=== PATIENT | male | born 1985 | race African-American/Black ===

== ENCOUNTER 2020-08-05 13:47 | Emergency (ER) | payer OTHER ==
[2020-08-05] MEDS ORDERED: SODIUM CHLORIDE 0.9% 1,000 ML IV STA (14:13)
[2020-08-05] MEDS ORDERED: ONDANSETRON 4 MG/2 ML VIAL IVP STA (14:13)
[2020-08-05 14:35] LABS: Basophils # (A) 0.1 k/uL (0-0.2); Basophils % (A) 1 %; Eosinophils % (A) 1 %; HCT 53.5 % (39.0-53.0); HGB 17.5 gm/dL (13.0-17.5); Lymphocytes # (A) 2.4 k/uL (1.0-4.8); Lymphocytes % (A) 36 %; MCH 29.5 pg (25.0-35.0); MCHC 32.7 g/dL (31.0-37.0); MCV 90.2 fL (80.0-100.0); Mean Platelet Volume 7.6; Monocytes # (A) 0.6 k/uL (0-1.0); Monocytes % (A) 9 %; Neutrophils # (A) 3.3 k/uL (1.3-7.7); Neutrophils % (A) 49 %; Platelet Count 367 k/uL (150-450); RBC 5.93 m/uL (4.30-5.90); RDW 12.7 % (11.5-15.5); WBC 6.7 k/uL (3.8-10.6)
[2020-08-05 14:36] LABS: Appearance,Urine Clear (Clear); Bilirubin,Urine Negative (Negative); Blood,Urine Negative (Negative); Color,Urine Yellow; Glucose,Urine (UA) Negative (Negative); Ketones,Urine 2+ (Negative); Leukocyte Esterase,Urine Negative (Negative); Nitrite,Urine Negative (Negative); PH, Urine 5.5 (5.0-8.0); Protein,Urine Trace (Negative); Specific Gravity,Urine 1.022 (1.001-1.035); Urobilinogen,Urine <2.0 mg/dL (<2.0)
--- NOTE | 2020-08-05 14:44 | ED ---
Nausea/Vomiting/Diarrhea HPI - General Chief complaint: Nausea/Vomiting/Diarrhea Stated complaint: Nausea, Diarrhea Time Seen by Provider: 08/05/20 13:58 Source: patient Mode of arrival: ambulatory Limitations: no limitations - History of Present Illness Initial comments: Patient is a 35-year-old male presenting to emergency Department with complaints of fatigue, nausea, vomiting, diarrhea and abdominal cramping has been increasing over the past 3 days. He denies any fever or chills, chest pain or cough. He states it started with some abdominal cramping and diarrhea, he had vomiting yesterday, but none today. He is complaining of fatigue, achiness. He denies any urinary complaints. He does not take any medications. He denies any headaches, dizziness, blurry vision. He has no further complaints at this time. Upon arrival to the ER, his vital signs are stable. - Related Data Home Medications Medication Instructions Recorded Confirmed Acetaminophen Tab [Tylenol Tab] 1,000 mg PO Q6HR PRN 08/05/20 08/05/20 Bismuth Subsalicylate 524 mg PO Q2H PRN MDD 4080 mg/day 08/05/20 08/05/20 [Pepto-Bismol] Allergies Allergy/AdvReac Type Severity Reaction Status Date / Time No Known Allergies Allergy Verified 08/05/20 14:39 Review of Systems ROS Statement: Those systems with pertinent positive or pertinent negative responses have been documented in the HPI. ROS Other: All systems not noted in ROS Statement are negative. Past Medical History Past Medical History: No Reported History History of Any Multi-Drug Resistant Organisms: None Reported Past Surgical History: No Surgical Hx Reported Past Psychological History: No Psychological Hx Reported Smoking Status: Current every day smoker Past Alcohol Use History: None Reported Past Drug Use History: Marijuana General Exam - General Exam Comments Initial Comments: GENERAL: Patient is well-developed and well-nourished. Patient is nontoxic and in no acute distress. HEAD: Atraumatic, normocephalic. EYES: Pupils equal round and reactive to light, extraocular movements intact, sclera anicteric, conjunctiva are normal. Eyelids were unremarkable. ENT: TMs normal, nares patent, oropharynx clear without exudates. Moist mucous membranes. NECK: Normal range of motion, supple without lymphadenopathy or JVD. LUNGS: Unlabored respirations. Breath sounds clear to auscultation bilaterally and equal. No wheezes rales or rhonchi. HEART: Regular rate and rhythm without murmurs, rubs or gallops. ABDOMEN: Generalized abdominal discomfort, no specific area pain. Soft, normoactive bowel sounds. No guarding, no rebound. No masses appreciated. : Deferred MUSCULOSKELETAL: Normal extremities with adequate strength and normal range of motion, no pitting or edema. No clubbing or cyanosis. NEUROLOGICAL: Patient is alert and oriented x 3. Motor and sensory are also intact. Cranial nerves II through XII grossly intact. Symmetrical smile. Normal speech, normal gait. PSYCH: Normal mood, normal affect. SKIN: Warm, Dry, normal turgor, no rashes or lesions noted. Limitations: no limitations Course Vital Signs 08/05/20 08/05/20 13:51 16:06 Temperature 97.9 F 98.1 F Pulse Rate 70 69 Respiratory 18 19 Rate Blood Pressure 117/70 120/76 O2 Sat by Pulse 97 99 Oximetry Medical Decision Making - Medical Decision Making Patient 35-year-old male here for nausea, vomiting, abdominal cramping and generalized fatigue for the last 3 days. Vital signs are stable. Labs show normal white count, normal hemoglobin, liver enzymes are very slightly elevated at 77, 138. Lipase is normal. Urine shows 2+ ketones otherwise normal. Patient was given fluids and Zofran, reports mild improvement in symptoms. I discussed with patient that his symptoms could be related to dehydration, viral illness. I did recommend getting test for Covid, this is pending. He can continue increase his fluid intake. I did give him PCP referral is to follow- up. He is in agreement with this plan of care. He is stable for discharge. Return parameters were discussed patient he verbalizes understanding. Case discussed with Dr. crane. - Lab Data Result diagrams: 08/05/20 14:20 08/05/20 14:20 Lab Results 08/05/20 08/05/20 08/05/20 Range/Units 14:20 14:20 14:20 WBC 6.7 (3.8-10.6) k/uL RBC 5.93 H (4.30-5.90) m/uL Hgb 17.5 (13.0-17.5) gm/dL Hct 53.5 H (39.0-53.0) % MCV 90.2 (80.0-100.0) fL MCH 29.5 (25.0-35.0) pg MCHC 32.7 (31.0-37.0) g/dL RDW 12.7 (11.5-15.5) % Plt Count 367 (150-450) k/uL Neutrophils % 49 % Lymphocytes % 36 % Monocytes % 9 % Eosinophils % 1 % Basophils % 1 % Neutrophils # 3.3 (1.3-7.7) k/uL Lymphocytes # 2.4 (1.0-4.8) k/uL Monocytes # 0.6 (0-1.0) k/uL Eosinophils # 0.0 (0-0.7) k/uL Basophils # 0.1 (0-0.2) k/uL Sodium 140 (137-145) mmol/L Potassium 4.6 (3.5-5.1) mmol/L Chloride 101 (98-107) mmol/L Carbon Dioxide 25 (22-30) mmol/L Anion Gap 14 mmol/L BUN 15 (9-20) mg/dL Creatinine 0.81 (0.66-1.25) mg/dL Est GFR (CKD-EPI)AfAm >90 (>60 ml/min/1.73 sqM) Est GFR (CKD-EPI)NonAf >90 (>60 ml/min/1.73 sqM) Glucose 96 (74-99) mg/dL Calcium 11.3 H (8.4-10.2) mg/dL Total Bilirubin 0.7 (0.2-1.3) mg/dL AST 77 H (17-59) U/L ALT 138 H (4-49) U/L Alkaline Phosphatase 96 (38-126) U/L Total Protein 8.0 (6.3-8.2) g/dL Albumin 4.7 (3.5-5.0) g/dL Lipase 279 (23-300) U/L Urine Color Yellow Urine Appearance Clear (Clear) Urine pH 5.5 (5.0-8.0) Ur Specific [place] 1.022 (1.001-1.035) Urine Protein Trace H (Negative) Urine Glucose (UA) Negative (Negative) Urine Ketones 2+ H (Negative) Urine Blood Negative (Negative) Urine Nitrite Negative (Negative) Urine Bilirubin Negative (Negative) Urine Urobilinogen <2.0 (<2.0) mg/dL Ur Leukocyte Esterase Negative (Negative) Disposition Clinical Impression: Nausea vomiting and diarrhea Disposition: HOME SELF-CARE Condition: Stable Instructions (If sedation given, give patient instructions): Acute Nausea and Vomiting (ED) Additional Instructions: Please return to the Emergency Department if symptoms worsen or any other concerns. Lab work today is normal, mild dehydration. COVID test is pending. Continue to increase fluid intake. I recommended following up with her PCP did have labs retested. Is patient prescribed a controlled substance at d/c from ED?: No Referrals: None,Stated [Primary Care Provider] - 1-2 days Irene Darby MD [STAFF PHYSICIAN] - 1-2 days Hugh Arthur [STAFF PHYSICIAN] - 1-2 days
[2020-08-05 14:46] LABS: ALT 138 U/L (4-49); AST 77 U/L (17-59); African American GFR (CKD) >90 (>60 ml/min/1.73 sqM); Albumin 4.7 g/dL (3.5-5.0); Alkaline Phosphatase 96 U/L (38-126); Anion Gap 14 mmol/L; Blood Urea Nitrogen 15 mg/dL (9-20); Calcium 11.3 mg/dL (8.4-10.2); Carbon Dioxide 25 mmol/L (22-30); Chloride 101 mmol/L (98-107); Glucose 96 mg/dL (74-99); Non-African American GFR(CKD) >90 (>60 ml/min/1.73 sqM); Potassium 4.6 mmol/L (3.5-5.1); Sodium 140 mmol/L (137-145); Total Bilirubin 0.7 mg/dL (0.2-1.3)
[2020-08-05 16:08] VITALS: BP 120/76; PULSE 69; RESP 19; TEMP 98.1
== END 2020-08-05 16:08 | disposition home or self-care (01) ==
LOC: EC 13:47
DX: R11.2 Nausea with vomiting, unspecified (principal); R19.7 Diarrhea, unspecified; R10.9 Unspecified abdominal pain; F17.200 Nicotine dependence, unspecified, uncomplicated; Z20.828 Contact with and (suspected) exposure to other viral communicable diseases
CPT/HCPCS: 36415; 80053; 83690; 85025; 81003; 99284; 96374; 96361 ×2; U0003; J2405

== ENCOUNTER 2020-10-29 12:19 | Observation (INO) | payer BC, OTHER ==
[2020-10-29] MEDS ORDERED: SODIUM CHLORIDE 0.9% 500 ML 500 ML IV STA (13:10)
--- NOTE | 2020-10-29 13:20 | ED ---
General Adult HPI - General Chief complaint: Recheck/Abnormal Lab/Rx Stated complaint: palpitations, fatigue Time Seen by Provider: 10/29/20 12:33 Source: patient Mode of arrival: wheelchair Limitations: no limitations - History of Present Illness Initial comments: 35-year-old male without any significant past medical history presents to the emergency room for a chief complaint of shortness of breath. Patient states he is walking up the stairs today and could not catch his breath. He felt like his heart was racing. That he has not felt well for several months. He has had nausea vomiting starting in June or July that lasted for about a month and then resolved. Patient states he has not had much of an appetite but is eating a little more since that time. However he has lost 40 pounds over the past several months. - Related Data Home Medications Medication Instructions Recorded Confirmed No Known Home Medications 10/29/20 10/29/20 Allergies Allergy/AdvReac Type Severity Reaction Status Date / Time No Known Allergies Allergy Verified 10/29/20 12:57 Review of Systems ROS Statement: Those systems with pertinent positive or pertinent negative responses have been documented in the HPI. ROS Other: All systems not noted in ROS Statement are negative. Past Medical History Past Medical History: No Reported History History of Any Multi-Drug Resistant Organisms: None Reported Past Surgical History: No Surgical Hx Reported Past Psychological History: Anxiety Smoking Status: Current every day smoker Past Alcohol Use History: None Reported Past Drug Use History: Marijuana General Exam Limitations: no limitations General appearance: alert Head exam: Present: atraumatic Eye exam: Present: normal appearance, PERRL, EOMI ENT exam: Absent: normal exam, mucous membranes moist Neck exam: Present: normal inspection, full ROM. Absent: tenderness Respiratory exam: Present: normal lung sounds bilaterally. Absent: respiratory distress Cardiovascular Exam: Present: normal rhythm, tachycardia GI/Abdominal exam: Present: soft, normal bowel sounds. Absent: distended, tenderness Neurological exam: Present: alert Course Vital Signs 10/29/20 10/29/20 10/29/20 12:27 13:46 14:00 Temperature 98.4 F Pulse Rate 124 H 116 H Pulse Rate [ 121 H Offset Press Operator Helper ] Respiratory 18 Rate Blood Pressure 122/74 136/78 O2 Sat by Pulse 100 99 Oximetry 10/29/20 10/29/20 10/29/20 14:30 15:00 15:30 Temperature Pulse Rate 134 H 118 H 115 H Pulse Rate [ Offset Press Operator Helper ] Respiratory 16 16 16 Rate Blood Pressure 128/70 129/72 129/81 O2 Sat by Pulse 98 100 100 Oximetry Medical Decision Making - Medical Decision Making Patient presents tachycardic with slight shortness of breath. Gurjit did have an episode of severe shortness of breath he could not meet at the stairs. No chest pain. EKG did show diffuse WI depression with slight ST elevation. Troponin negative. D-dimer normal. CBC is unremarkable. CMP shows mild hypercalcemia, chest x-ray shows no acute cardiopulmonary process. Echo is obtained, awaiting cardiology read. Dr. Hay discussed this case with cardiology, thinks EKG likely early repolarization. Patient will be admitted to Dr. Rojas with cardiac monitoring. - Lab Data Result diagrams: 10/29/20 13:14 10/29/20 13:14 Lab Results 10/29/20 10/29/20 10/29/20 Range/Units 13:14 13:14 13:14 WBC 6.9 (3.8-10.6) k/uL RBC 5.59 (4.30-5.90) m/uL Hgb 15.6 (13.0-17.5) gm/dL Hct 47.0 (39.0-53.0) % MCV 84.1 (80.0-100.0) fL MCH 27.9 (25.0-35.0) pg MCHC 33.2 (31.0-37.0) g/dL RDW 14.7 (11.5-15.5) % Plt Count 288 (150-450) k/uL MPV 7.8 Neutrophils % 54 % Lymphocytes % 31 % Monocytes % 10 % Eosinophils % 1 % Basophils % 1 % Neutrophils # 3.8 (1.3-7.7) k/uL Lymphocytes # 2.2 (1.0-4.8) k/uL Monocytes # 0.7 (0-1.0) k/uL Eosinophils # 0.1 (0-0.7) k/uL Basophils # 0.0 (0-0.2) k/uL PT 9.9 (9.0-12.0) sec INR 0.9 (<1.2) APTT 23.2 (22.0-30.0) sec D-Dimer 0.32 (<0.60) mg/L FEU Sodium 138 (137-145) mmol/L Potassium 5.1 (3.5-5.1) mmol/L Chloride 103 (98-107) mmol/L Carbon Dioxide 27 (22-30) mmol/L Anion Gap 8 mmol/L BUN 14 (9-20) mg/dL Creatinine 0.66 (0.66-1.25) mg/dL Est GFR (CKD-EPI)AfAm >90 (>60 ml/min/1.73 sqM) Est GFR (CKD-EPI)NonAf >90 (>60 ml/min/1.73 sqM) Glucose 72 L (74-99) mg/dL Calcium 11.6 H (8.4-10.2) mg/dL Magnesium 1.7 (1.6-2.3) mg/dL Total Bilirubin 0.8 (0.2-1.3) mg/dL AST 45 (17-59) U/L ALT 57 H (4-49) U/L Alkaline Phosphatase 169 H (38-126) U/L Troponin I (0.000-0.034) ng/mL NT-Pro-B Natriuret Pep pg/mL Total Protein 7.5 (6.3-8.2) g/dL Albumin 4.4 (3.5-5.0) g/dL Urine Opiates Screen (NotDetected) Ur Oxycodone Screen (NotDetected) Urine Methadone Screen (NotDetected) Ur Propoxyphene Screen (NotDetected) Ur Barbiturates Screen (NotDetected) U Tricyclic Antidepress (NotDetected) Ur Phencyclidine Scrn (NotDetected) Ur Amphetamines Screen (NotDetected) U Methamphetamines Scrn (NotDetected) U Benzodiazepines Scrn (NotDetected) Urine Cocaine Screen (NotDetected) U Marijuana (THC) Screen (NotDetected) 10/29/20 10/29/20 10/29/20 Range/Units 13:14 13:14 14:56 WBC (3.8-10.6) k/uL RBC (4.30-5.90) m/uL Hgb (13.0-17.5) gm/dL Hct (39.0-53.0) % MCV (80.0-100.0) fL MCH (25.0-35.0) pg MCHC (31.0-37.0) g/dL RDW (11.5-15.5) % Plt Count (150-450) k/uL MPV Neutrophils % % Lymphocytes % % Monocytes % % Eosinophils % % Basophils % % Neutrophils # (1.3-7.7) k/uL Lymphocytes # (1.0-4.8) k/uL Monocytes # (0-1.0) k/uL Eosinophils # (0-0.7) k/uL Basophils # (0-0.2) k/uL PT (9.0-12.0) sec INR (<1.2) APTT (22.0-30.0) sec D-Dimer (<0.60) mg/L FEU Sodium (137-145) mmol/L Potassium (3.5-5.1) mmol/L Chloride (98-107) mmol/L Carbon Dioxide (22-30) mmol/L Anion Gap mmol/L BUN (9-20) mg/dL Creatinine (0.66-1.25) mg/dL Est GFR (CKD-EPI)AfAm (>60 ml/min/1.73 sqM) Est GFR (CKD-EPI)NonAf (>60 ml/min/1.73 sqM) Glucose (74-99) mg/dL Calcium (8.4-10.2) mg/dL Magnesium (1.6-2.3) mg/dL Total Bilirubin (0.2-1.3) mg/dL AST (17-59) U/L ALT (4-49) U/L Alkaline Phosphatase (38-126) U/L Troponin I <0.012 (0.000-0.034) ng/mL NT-Pro-B Natriuret Pep 62 pg/mL Total Protein (6.3-8.2) g/dL Albumin (3.5-5.0) g/dL Urine Opiates Screen Not Detected (NotDetected) Ur Oxycodone Screen Not Detected (NotDetected) Urine Methadone Screen Not Detected (NotDetected) Ur Propoxyphene Screen Not Detected (NotDetected) Ur Barbiturates Screen Not Detected (NotDetected) U Tricyclic Antidepress Not Detected (NotDetected) Ur Phencyclidine Scrn Not Detected (NotDetected) Ur Amphetamines Screen Not Detected (NotDetected) U Methamphetamines Scrn Not Detected (NotDetected) U Benzodiazepines Scrn Not Detected (NotDetected) Urine Cocaine Screen Not Detected (NotDetected) U Marijuana (THC) Screen Detected H (NotDetected) Disposition Clinical Impression: Tachycardia, Hypercalcemia, Shortness of breath, Acute electrocardiogram changes Disposition: ADMITTED IP TO THIS HOSP Is patient prescribed a controlled substance at d/c from ED?: No Referrals: Chente Rojas MD [Primary Care Provider] - 1-2 days Time of Disposition: 16:02
--- NOTE | 2020-10-29 13:41 | XR ---
EXAMINATION TYPE: XR chest 1V portable DATE OF EXAM: 10/29/2020 COMPARISON: Chest x-ray dated 12/31/2015 HISTORY: Chest pain TECHNIQUE: Single frontal view of the chest is obtained. FINDINGS: There is no focal air space opacity, pleural effusion, or pneumothorax seen. The cardiac silhouette size is within normal limits. There are overlying cardiac leads. There is mild spinal cu rvature. The osseous structures are intact. IMPRESSION: No acute process.
[2020-10-29 13:55] LABS: Basophils % (A) 1 %; Eosinophils # (A) 0.1 k/uL (0-0.7); Eosinophils % (A) 1 %; HGB 15.6 gm/dL (13.0-17.5); Lymphocytes # (A) 2.2 k/uL (1.0-4.8); Lymphocytes % (A) 31 %; MCH 27.9 pg (25.0-35.0); MCHC 33.2 g/dL (31.0-37.0); MCV 84.1 fL (80.0-100.0); Mean Platelet Volume 7.8; Monocytes # (A) 0.7 k/uL (0-1.0); Monocytes % (A) 10 %; Neutrophils # (A) 3.8 k/uL (1.3-7.7); Neutrophils % (A) 54 %; Platelet Count 288 k/uL (150-450); RBC 5.59 m/uL (4.30-5.90); RDW 14.7 % (11.5-15.5); WBC 6.9 k/uL (3.8-10.6)
[2020-10-29 14:05] LABS: ALT 57 U/L (4-49); AST 45 U/L (17-59); African American GFR (CKD) >90 (>60 ml/min/1.73 sqM); Albumin 4.4 g/dL (3.5-5.0); Alkaline Phosphatase 169 U/L (38-126); Anion Gap 8 mmol/L; Blood Urea Nitrogen 14 mg/dL (9-20); Calcium 11.6 mg/dL (8.4-10.2); Carbon Dioxide 27 mmol/L (22-30); Chloride 103 mmol/L (98-107); Glucose 72 mg/dL (74-99); Magnesium 1.7 mg/dL (1.6-2.3); Non-African American GFR(CKD) >90 (>60 ml/min/1.73 sqM); Potassium 5.1 mmol/L (3.5-5.1); Sodium 138 mmol/L (137-145); Total Bilirubin 0.8 mg/dL (0.2-1.3); Total Protein 7.5 g/dL (6.3-8.2)
[2020-10-29 14:13] LABS: D-Dimer 0.32 mg/L FEU (<0.60); INR 0.9 (<1.2); Partial Thromboplastin Time 23.2 sec (22.0-30.0); Prothrombin Time 9.9 sec (9.0-12.0)
[2020-10-29 15:20] LABS: Amphetamine Screen,Urine Not Detected (NotDetected); Barbiturate Screen,Urine Not Detected (NotDetected); Benzodiazepines Screen,Urine Not Detected (NotDetected); Cocaine Screen,Urine Not Detected (NotDetected); Methadone Screen, Urine Not Detected (NotDetected); Opiate Screen,Urine Not Detected (NotDetected); Oxycodone Screen, Urine Not Detected (NotDetected); Phencyclidine Screen,Urine Not Detected (NotDetected); Tricyclic Antidepressant,Urine Not Detected (NotDetected); Urn Cannabinoid Scrn Detected (NotDetected)
[2020-10-29] MEDS ORDERED: ONDANSETRON 4 MG/2 ML VIAL IVP PRN (15:52)
[2020-10-29] MEDS ORDERED: NALOXONE 0.4 MG/ML 1 ML VIAL IV PRN (15:52)
[2020-10-29] MEDS: SODIUM CHLORIDE 0.9% 1,000 ML IV SCH (16:12)
--- NOTE | 2020-10-29 17:43 | ECHOF ---
Referral Reason:tachy MEASUREMENTS -------- HEIGHT: 175.3 cm WEIGHT: 69.8 kg BP: 136/78 RVIDd: 3.7 cm (< 3.3) IVSd: 1.1 cm (0.6 - 1.1) LVIDd: 3.7 cm (3.9 - 5.3) LVPWd: 1.2 cm (0.6 - 1.1) IVSs: 1.4 cm LVIDs: 2.3 cm LVPWs: 1.5 cm LAESV Index (A-L): 19.71 ml/m Ao Diam: 3.3 cm (2.0 - 3.7) AV Cusp: 2.0 cm (1.5 - 2.6) MV EXCURSION: 23.124 mm (> 18.000) MV EF SLOPE: 109 mm/s (70 - 150) EPSS: 0.3 cm MV E Rob: 0.73 m/s MV DecT: 167 ms MV A Rob: 1.10 m/s MV E/A Ratio: 0.66 AV maxP.68 mmHg AV meanP.21 mmHg RAP: 5.00 mmHg RVSP: 25.92 mmHg FINDINGS -------- Sinus rhythm. Resting tachycardia (HR>100bpm). This was a technically adequate study. The left ventricular size is normal. There is mild concentric left ventricular hypertrophy. Overa ll left ventricular systolic function is normal with, an EF between 55 - 60 %. The right ventricle is mildly enlarged. Normal LA size by volume 22+/-6 ml/m2. The right atrial size is normal. Interatrial and interventricular septum intact. The aortic valve is trileaflet, and appears structurally normal. No aortic stenosis or regurgitation. The mitral valve is normal. There is trace mitral regurgitation. The tricuspid valve appears structurally normal. Mild tricuspid regurgitation present. Right vent ricular systolic pressure is normal at < 35 mmHg. The right ventricular systolic pressure, as measu red by Doppler, is 25.92mmHg. There is no pulmonic regurgitation present. The aortic root size is normal. Normal inferior vena cava with normal inspiratory collapse consistent with estimated right atrial pre ssure of 5 mmHg. There is no pericardial effusion. CONCLUSIONS -------- 1. There is mild concentric left ventricular hypertrophy. 2. Overall left ventricular systolic function is normal with, an EF between 55 - 60 %. 3. The right ventricle is mildly enlarged. 4. The aortic valve is trileaflet, and appears structurally normal. No aortic stenosis or regurgitati on. 5. There is trace mitral regurgitation. 6. Mild tricuspid regurgitation present. CAREER TECHNICAL SUPERVISOR: Marilyn Ahmadi RDCS
[2020-10-30 05:58] LABS: T4, Free (Free Thyroxine) >6.99 ng/dL (0.78-2.19)
[2020-10-30] MEDS: SODIUM CHLORIDE 0.9% 1,000 ML IV SCH ×2 (06:34→17:50)
[2020-10-30 10:22] VITALS: BMI 22.0
[2020-10-30] MEDS ORDERED: METOPROLOL TARTRATE 25 MG TAB PO SCH (11:00)
--- NOTE | 2020-10-30 12:27 | P.CRDCN ---
History of Present Illness Consult date: 10/30/20 History of present illness: CHIEF COMPLAINT: Tachycardia HISTORY OF PRESENT ILLNESS: This is a 35-year-old male with no significant past medical history. Patient does not follow with a shell coremaker. We have been asked to see the patient in consultation for tachycardia. Patient examined this morning at bedside. Patient states back in June 2020 he was experiencing diarrhea and some GI issues that lasted for approximately 4 weeks. He states he was evaluated in the emergency room and was told that his liver labs were slightly abnormal. Patient states after a month his GI issues resolved but he has been having palpitations, shortness of breath, and fatigue since that time. Patient states yesterday he was walking up stairs and had to stop and sit down because he was so winded. He denies chest pain or pressure. Patient continues to feel palpitations this morning. He reports being mildly short of breath. He complains of extreme weakness and fatigue. He states he has lost approximately 40 pounds over the last 6 months. Patient reports daily marijuana use. No nicotine use. Patient reports rare alcohol use. He denies a family history of cardiac disease. DIAGNOSTICS: EKG reveals sinus tachycardia with early repolarization Chest xray negative for acute process Laboratory data: WBC 6.9. Hemoglobin 15.6. Platelet count 288. Dimer 0.32. Sodium 138. Potassium 5.1. BUN 14. Creatinine 0.66. Calcium 11.6. AST 45. ALT 57. Alkaline phosphatase 169. Troponin negative 3. TSH less than 0.015. Free T4 greater than 6.99. Current home cardiac medications include none Echocardiogram completed revealed ejection fraction 55-60%, trace mitral regurgitation and mild mitral regurgitation REVIEW OF SYSTEMS: At the time of my exam: CONSTITUTIONAL: Denies fever or chills. HEENT: Denies blurred vision, vision changes, or eye pain. Denies hemoptysis CARDIOVASCULAR: Denies chest pain, orthopnea, PND. Reports palpitations RESPIRATORY: Reports mild shortness of breath. GASTROINTESTINAL: Denies abdominal pain. Denies nausea or vomiting. HEMATOLOGIC: Denies bleeding disorders. GENITOURINARY: Denies any blood in urine. SKIN: Denies pruitis. Denies rash. PHYSICAL EXAM: VITAL SIGNS: Reviewed. GENERAL: Well-developed in no acute distress. HEENT: Head is normocephalic. Pupils are equal, round. Sclerae anicteric. Mucous membranes of the mouth are moist. Neck supple. No JVD or thyromegaly LUNGS: Respirations even and unlabored. Lungs essentially clear to auscultation bilaterally. HEART: Tachycardic. Regular rate and rhythm. S1 and S2 heard. ABDOMEN: Soft. Nondistended. Nontender. EXTREMITIES: Normal range of motion. No clubbing or cyanosis. Peripheral pulses intact. No lower extremity edema NEUROLOGIC: Awake and alert. Oriented x 3. ASSESSMENT: Palpitations Shortness of breath Abnormal TSH and free T4, suggestive of hyperthyroidism Daily marijuana use PLAN: Begin metoprolol 25 mg twice a day for tachycardia Consult endocrinology for evaluation Nurse practitioner note has been reviewed by physician. Signing provider agrees with the documented findings, assessment, and plan of care. Past Medical History Past Medical History: No Reported History History of Any Multi-Drug Resistant Organisms: None Reported Past Surgical History: No Surgical Hx Reported Past Psychological History: Anxiety Smoking Status: Light tobacco smoker Past Alcohol Use History: None Reported Additional Past Alcohol Use History / Comment(s): claims to smoke one cigarrette every once and a while. Past Drug Use History: Marijuana Medications and Allergies Home Medications Medication Instructions Recorded Confirmed Type No Known Home Medications 10/29/20 10/29/20 History Allergies Allergy/AdvReac Type Severity Reaction Status Date / Time No Known Allergies Allergy Verified 10/29/20 12:57 Physical Exam Vitals: Vital Signs Temp Pulse Pulse Resp BP BP Pulse Ox 10/30/20 08:42 97.9 F 104 H 16 136/72 99 10/30/20 04:00 98.1 F 117 H 17 114/57 99 10/29/20 23:23 98.5 F 105 H 17 127/64 99 10/29/20 20:25 98.1 F 116 H 16 138/72 99 10/29/20 20:00 98.0 F 115 H 17 142/76 99 10/29/20 18:29 109 H 18 140/71 98 10/29/20 17:00 114 H 16 10/29/20 16:42 98.0 F 115 H 17 142/76 99 10/29/20 16:00 121 H 16 131/77 100 10/29/20 15:30 115 H 16 129/81 100 10/29/20 15:00 118 H 16 129/72 100 10/29/20 14:30 134 H 16 128/70 98 10/29/20 14:00 116 H 136/78 99 10/29/20 13:46 121 H 10/29/20 12:27 98.4 F 124 H 18 122/74 100 Intake and Output 10/29/20 10/30/20 10/30/20 22:59 06:59 14:59 Output Total 500 Balance -500 Output: Urine 500 Other: Weight 69.853 kg 67.6 kg Results 10/29/20 13:14 10/29/20 13:14 Cardiac Enzymes 10/29/20 10/29/20 10/29/20 Range/Units 13:14 13:14 18:45 AST 45 (17-59) U/L Troponin I <0.012 <0.012 (0.000-0.034) ng/mL 10/29/20 Range/Units 20:58 AST (17-59) U/L Troponin I <0.012 (0.000-0.034) ng/mL Coagulation 10/29/20 Range/Units 13:14 PT 9.9 (9.0-12.0) sec APTT 23.2 (22.0-30.0) sec CBC 10/29/20 Range/Units 13:14 WBC 6.9 (3.8-10.6) k/uL RBC 5.59 (4.30-5.90) m/uL Hgb 15.6 (13.0-17.5) gm/dL Hct 47.0 (39.0-53.0) % Plt Count 288 (150-450) k/uL Comprehensive Metabolic Panel 10/29/20 Range/Units 13:14 Sodium 138 (137-145) mmol/L Potassium 5.1 (3.5-5.1) mmol/L Chloride 103 (98-107) mmol/L Carbon Dioxide 27 (22-30) mmol/L BUN 14 (9-20) mg/dL Creatinine 0.66 (0.66-1.25) mg/dL Glucose 72 L (74-99) mg/dL Calcium 11.6 H (8.4-10.2) mg/dL AST 45 (17-59) U/L ALT 57 H (4-49) U/L Alkaline Phosphatase 169 H (38-126) U/L Total Protein 7.5 (6.3-8.2) g/dL Albumin 4.4 (3.5-5.0) g/dL Current Medications Generic Name Dose Route Start Last Admin Trade Name Freq PRN Reason Stop Dose Admin Sodium Chloride 1,000 mls @ 75 mls/hr 10/29/20 16:00 10/30/20 06:34 Saline 0.9% IV 75 mls/hr .[id number] COLTON Administration Naloxone HCl 0.2 mg 10/29/20 15:52 Naloxone 0.4 Mg/Ml 1 Ml Vial IV Q2M PRN Opioid Reversal Ondansetron HCl 4 mg 10/29/20 15:52 Ondansetron 4 Mg/2 Ml Vial IVP Q8HR PRN Nausea And Vomiting Intake and Output 10/29/20 10/30/20 10/30/20 22:59 06:59 14:59 Output Total 500 Balance -500 Output: Urine 500 Other: Weight 69.853 kg 67.6 kg 10/29/20 13:14 10/29/20 13:14
--- NOTE | 2020-10-30 17:16 | HP ---
HISTORY AND PHYSICAL CHIEF COMPLAINT: Fast heart beat, fatigue and weight loss of 40 pounds. HISTORY OF PRESENT ILLNESS: This is the first known admission for this otherwise healthy 35-year-old - [place] male. Several months ago he noticed extreme fatigue, rapid heart beating and weight loss. He came into the emergency room this time and was found to have a pulse of around 125, and he was admitted. He is not on any medication. REVIEW OF SYSTEMS: He has had no neurologic problems, chest pain, shortness of breath, abdominal pain, nausea, vomiting, melena, hematochezia, jaundice, etc. He was told that his liver function studies were elevated last fall. He has no history of hepatitis. He has had no renal failure, dysuria, frequency, urgency, hematuria, incontinence, diabetes, etc. Past medical history, family history, and personal and social histories are all otherwise unremarkable or noncontributory. He is on no medication. He is NOT ALLERGIC TO ANY MEDICATION. He has had no surgery. He does not smoke. PHYSICAL EXAMINATION: Blood pressure is 126/80 with a pulse of 126. Respirations are 20 and he is afebrile. In general he appeared to be slender, healthy and in no acute distress. Skin color is normal. Skin is warm and dry. Lymph nodes were not enlarged. Head, ears, eyes, nose, mouth and throat were normal. Neck veins were not distended. Thyroid was not enlarged. Chest is clear and cardiac exam is normal except for tachycardia. The abdomen is soft and nontender without any visceromegaly or masses. Bowel sounds are present. Extremities are normal. Neurologically he is intact. IMPRESSION: 1. Unexplained weight loss, tachycardia and fatigue. 2. History of elevated liver function studies. PLAN: 1. Bedrest. 2. IV fluids. 3. Laboratory studies, including free T4 and TSH. MMODL / IJN: [id number] /
--- NOTE | 2020-10-30 17:26 | PN ---
PROGRESS NOTE CHIEF COMPLAINT: Tachycardia and weight loss. HISTORY OF PRESENT ILLNESS: This gentleman is feeling he feels about the same. He still has tachycardia. PHYSICAL EXAMINATION: Chest is clear. Cardiac exam is normal except for the heart rate. Abdomen is soft and nontender. Extremities are normal. IMPRESSION: Thyrotoxicosis. PLAN: 1. Start Tapazole. 2. Increase his beta wale. 3. He can probably go home tomorrow and be followed as an outpatient. MMODL / IJN: [id number] /
[2020-10-30] MEDS: METOPROLOL SUCCINATE (ER) 100 MG TAB.ER.24H PO SCH (17:50)
[2020-10-30] MEDS: methIMAzole 5 MG TAB PO SCH (17:50)
[2020-10-31] MEDS: methIMAzole 5 MG TAB PO SCH (09:13)
[2020-10-31] MEDS: METOPROLOL SUCCINATE (ER) 100 MG TAB.ER.24H PO SCH (09:13)
[2020-10-31] MEDS: SODIUM CHLORIDE 0.9% 1,000 ML IV SCH (09:21)
--- NOTE | 2020-10-31 13:05 | P.PN ---
Subjective Progress Note Date: 10/31/20 CHIEF COMPLAINT: Tachycardia HISTORY OF PRESENT ILLNESS: 10/30/2020 This is a 35-year-old male with no significant past medical history. 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 We have been asked to see the patient in consultation for tachycardia. Patient examined this morning at bedside. Patient states back in June 2020 he was experiencing diarrhea and some GI issues that lasted for approximately 4 weeks. He states he was evaluated in the emergency room and was told that his liver labs were slightly abnormal. Patient states after a month his GI issues resolved but he has been having palpitations, shortness of breath, and fatigue since that time. Patient states yesterday he was walking up stairs and had to stop and sit down because he was so winded. He denies chest pain or pressure. Patient continues to feel palpitations this morning. He reports being mildly short of breath. He complains of extreme weakness and fatigue. He states he has lost approximately 40 pounds over the last 6 months. Patient reports daily marijuana use. No nicotine use. Patient reports rare alcohol use. He denies a family history of cardiac disease. Echocardiogram completed revealed ejection fraction 55-60%, trace mitral regurgitation and mild mitral regurgitation 10/31/2020 Patient examined this morning the bedside. He denies chest pain or pressure. Denies shortness of breath. Patient was started on a beta wale yesterday. His heart rate is currently controlled. He is hoping to be discharged home today. PHYSICAL EXAM: VITAL SIGNS: Reviewed. GENERAL: Well-developed in no acute distress. HEENT: Head is normocephalic. Pupils are equal, round. Sclerae anicteric. Mucous membranes of the mouth are moist. Neck supple. No JVD or thyromegaly LUNGS: Respirations even and unlabored. Lungs essentially clear to auscultation bilaterally. HEART: Regular rate and rhythm. S1 and S2 heard. ABDOMEN: Soft. Nondistended. Nontender. EXTREMITIES: Normal range of motion. No clubbing or cyanosis. Peripheral pulses intact. No lower extremity edema NEUROLOGIC: Awake and alert. Oriented x 3. 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 Patient agreeable Patient stable for discharge home today from a cardiac perspective. Will defer to internal medicine Nurse practitioner note has been reviewed by physician. Signing provider agrees with the documented findings, assessment, and plan of care. Objective - Vital Signs Vital signs: Vital Signs Temp 97.7 F 10/31/20 08:00 Pulse 98 10/31/20 08:00 Resp 16 10/31/20 08:00 BP 144/71 10/31/20 08:00 Pulse Ox 99 10/31/20 08:00 Intake & Output 10/30/20 10/31/20 10/31/20 18:59 06:59 18:59 Intake Total 2880 240 Output Total 500 Balance 2880 -260 Weight 67.6 kg 68.4 kg Intake: Oral 2880 240 Output: Urine 500 Other: Voiding Method Toilet # Voids 1 3 1 - Labs CBC & Chem 7: 10/29/20 13:14 10/29/20 13:14
[2020-10-31 13:42] VITALS: BP 130/85; PULSE 92; RESP 17; TEMP 97.8
--- NOTE | 2020-10-31 23:29 | DS ---
DISCHARGE SUMMARY CHIEF COMPLAINT: Fatigue, weight loss and tachycardia. HISTORY OF PRESENT ILLNESS AND PHYSICAL EXAMINATION: Details of this man's history and physical can be found in his initial workup. LABORATORY STUDIES: While he was in the hospital he had laboratory studies, details of which can be found in the laboratory section of his chart. COURSE IN THE HOSPITAL: After admission he was placed at bedrest and started on intravenous fluids and was found to have a markedly elevated T4 and low TSH. He was started on beta blockers and Tapazole and his pulse came to down below 100. He was doing well and it was thought that he could go home. He will be followed up in several days in the office and his thyroid disease will be further evaluated. FINAL DIAGNOSIS: Thyrotoxicosis. OPERATIONS: None. CONSULTATIONS: None. He is improved. MARGARITO / YARIEL: [id number] /
== END 2020-10-31 14:26 | disposition home or self-care (01) ==
LOC: EC 12:19 → 3SCARD 15:52
PROVIDERS: ADMIT Family Medicine; ATTEND Family Medicine
DX: E05.90 Thyrotoxicosis, unspecified without thyrotoxic crisis or storm (principal); R00.0 Tachycardia, unspecified; E83.52 Hypercalcemia; Z87.19 Personal history of other diseases of the digestive system; R63.4 Abnormal weight loss; I34.0 Nonrheumatic mitral (valve) insufficiency; F41.9 Anxiety disorder, unspecified; F17.210 Nicotine dependence, cigarettes, uncomplicated
CPT/HCPCS: 96361 ×2; 93005 ×2; 96360; 99285; 36415; 93306; 85379; 84439; 83880; 80053; 84443; 83735; 84484; 85025; 85610; 85730; 80306; 71045; G0378 ×3

== ENCOUNTER 2022-07-09 07:50 | Emergency (ER) | payer OTHER ==
[2022-07-09 08:10] VITALS: BP 115/82; PULSE 89; RESP 20; TEMP 98.2
--- NOTE | 2022-07-09 08:37 | ED ---
URI HPI - General Chief Complaint: Upper Respiratory Infection Stated Complaint: COVID test Time Seen by Provider: 07/09/22 08:18 Source: patient Mode of arrival: ambulatory Limitations: no limitations - History of Present Illness Initial Comments: This is a well-appearing 37-year-old male who presents to the emergency room with complaints of body aches congestion and fever chills since early Wednesday morning. Patient is requesting a coronavirus test. He has not been vaccinated. Denies any other medical history. MD Complaint: fever, rhinorrhea, nasal congestion -: days(s) (2) Severity scale (1-10): 8 (body aches) Consistency: constant Associated Symptoms: chills, myalgias, diarrhea, other (Body aches) - Related Data Previous Rx's Medication Instructions Recorded Metoprolol Succinate (ER) [Toprol 100 mg PO DAILY #10 tab.er.24h 10/31/20 XL] methIMAzole [Tapazole] 10 mg PO DAILY #10 tab 10/31/20 Allergies Allergy/AdvReac Type Severity Reaction Status Date / Time No Known Allergies Allergy Verified 07/09/22 08:10 Review of Systems ROS Statement: Those systems with pertinent positive or pertinent negative responses have been documented in the HPI. ROS Other: All systems not noted in ROS Statement are negative. Past Medical History Past Medical History: Thyroid Disorder History of Any Multi-Drug Resistant Organisms: None Reported Past Surgical History: No Surgical Hx Reported Past Psychological History: Anxiety Smoking Status: Light tobacco smoker Past Alcohol Use History: Occasional Past Drug Use History: Marijuana General Exam Limitations: no limitations General appearance: alert, in no apparent distress Head exam: Present: atraumatic, normocephalic Eye exam: Absent: scleral icterus, conjunctival injection, periorbital swelling ENT exam: Present: mucous membranes moist Expanded Mouth exam: Absent: drooling, trismus, muffled voice, tongue normal, tongue elevation Throat exam: negative: tonsillar erythema, tonsillar exudate, R peritonsillar mass, L peritonsillar mass Neck exam: Present: full ROM. Absent: tenderness, meningismus Respiratory exam: Present: normal lung sounds bilaterally. Absent: respiratory distress, wheezes, rales, rhonchi, stridor, chest wall tenderness, accessory muscle use Cardiovascular Exam: Present: regular rate, normal heart sounds GI/Abdominal exam: Present: soft. Absent: distended, tenderness, guarding, rebound, rigid Extremities exam: Present: normal capillary refill Neurological exam: Present: alert, oriented X3, normal gait Psychiatric exam: Present: normal affect, normal mood Skin exam: Present: warm, dry, normal color. Absent: cyanosis, diaphoretic, petechiae, pallor Course Vital Signs 07/09/22 08:08 Temperature 98.2 F Pulse Rate 89 Respiratory 20 Rate Blood Pressure 115/82 O2 Sat by Pulse 99 Oximetry Medical Decision Making - Medical Decision Making Patient presents with cough, congestion, body aches, chills and diarrhea since yesterday morning. Denies any chest pain or difficulty breathing. Signs are stable, lung sounds are clear and oxygen saturation is 99% on room air. He is Covid positive. He was directed to rest, increase his fluid intake, Tylenol and Motrin as needed for pain or discomfort. He was encouraged to take vitamin C, vitamin D and zinc daily for immune health. Return to the emergency room with symptoms. Case discussed with Dr. Nieto. - Lab Data Lab Results 07/09/22 Range/Units 08:12 Coronavirus (PCR) Detected A (Not Detectd) Disposition Clinical Impression: COVID-19 Disposition: HOME SELF-CARE Condition: Good Instructions (If sedation given, give patient instructions): COVID-19 (Coronavirus Disease 2019) (ED), How to Recover from COVID-19 at Home (ED) Additional Instructions: Increase your fluid intake. Take Tylenol and/or Motrin as needed for any pain or discomfort. You can also take vitamin C, vitamin D and zinc to improve your immune health. Self quarantine for 10 days from symptom onset. If after 5 days you have no symptoms you can go into public wearing just a mass for the remaining 5 days. Follow-up with your primary care doctor next week and return to the emergency room with any new or concerning symptoms. Is patient prescribed a controlled substance at d/c from ED?: No Referrals: Chente Rojas MD [Primary Care Provider] - 1-2 days Time of Disposition: 08:38
== END 2022-07-09 08:54 | disposition home or self-care (01) ==
LOC: EC 07:50
DX: U07.1 COVID-19 (principal); F17.200 Nicotine dependence, unspecified, uncomplicated
CPT/HCPCS: 87635; 99283

== ENCOUNTER 2022-08-27 16:53 | Emergency (ER) | payer OTHER ==
[2022-08-27 18:57] VITALS: BP 146/83; PULSE 73; RESP 18; TEMP 97.6
--- NOTE | 2022-08-27 19:34 | ED ---
URI HPI - General Chief Complaint: Upper Respiratory Infection Stated Complaint: Cough,Runny Nose Time Seen by Provider: 08/27/22 19:29 Source: patient, RN notes reviewed Mode of arrival: ambulatory - History of Present Illness Initial Comments: This is a pleasant 37-year-old male who presents for a cough, runny nose going on for 1 week. Patient's son also has similar symptoms. No headache, no fever or chills, no changes in vision or hearing, no sore throat or difficulty with speech, no neck pain, no chest pain or shortness of breath, no abdominal pain, no nausea or vomiting, no changes in urination or bowel movements, no numbness or tingling, no extremity pain, no skin rashes or lesions. Past medical, surgical, social, and family history reviewed. - Related Data Previous Rx's Medication Instructions Recorded Metoprolol Succinate (ER) [Toprol 100 mg PO DAILY #10 tab.er.24h 10/31/20 XL] methIMAzole [Tapazole] 10 mg PO DAILY #10 tab 10/31/20 Benzonatate [Tessalon Perles] 200 mg PO TID PRN #30 capsule 08/27/22 Allergies Allergy/AdvReac Type Severity Reaction Status Date / Time No Known Allergies Allergy Verified 08/27/22 18:57 Review of Systems ROS Statement: Those systems with pertinent positive or pertinent negative responses have been documented in the HPI. ROS Other: All systems not noted in ROS Statement are negative. Past Medical History Past Medical History: Thyroid Disorder History of Any Multi-Drug Resistant Organisms: None Reported Past Surgical History: No Surgical Hx Reported Past Psychological History: Anxiety Smoking Status: Light tobacco smoker Past Alcohol Use History: Occasional Past Drug Use History: Marijuana General Exam General appearance: alert, in no apparent distress Head exam: Present: atraumatic, normocephalic, normal inspection Eye exam: Present: normal appearance, PERRL, EOMI. Absent: scleral icterus, conjunctival injection, periorbital swelling ENT exam: Present: normal exam, mucous membranes moist Neck exam: Present: normal inspection. Absent: tenderness, meningismus, lymphadenopathy Respiratory exam: Present: normal lung sounds bilaterally. Absent: respiratory distress, wheezes, rales, rhonchi, stridor Cardiovascular Exam: Present: regular rate, normal rhythm, normal heart sounds. Absent: systolic murmur, diastolic murmur, rubs, gallop, clicks GI/Abdominal exam: Present: soft, normal bowel sounds. Absent: distended, tenderness, guarding, rebound, rigid Extremities exam: Present: normal inspection, full ROM, normal capillary refill. Absent: tenderness, pedal edema, joint swelling, calf tenderness Back exam: Present: normal inspection Neurological exam: Present: alert, oriented X3, CN II-XII intact Psychiatric exam: Present: normal affect, normal mood Skin exam: Present: warm, dry, intact, normal color. Absent: rash Course Vital Signs 08/27/22 18:53 Temperature 97.6 F Pulse Rate 73 Respiratory 18 Rate Blood Pressure 146/83 O2 Sat by Pulse 98 Oximetry Medical Decision Making - Medical Decision Making This patient does not appear to be ill or toxic. Patient in no distress. Patient symptomology consistent with a viral upper respiratory infection. Patient had COVID-19 a little more than a month ago. This is unlikely be COVID- 19. Has been his posterior son who has similar symptoms. I do not believe this is consistent with bacterial pneumonia as the patient has not had fever and shaking chills. Did discuss imaging such as chest x-ray. Given the patient's well appearance. Imaging deferred at this time to shared decision-making. Patient was told to return to the ER for any signs or symptoms worsen. Told to return immediately if any other problems arise. All questions answered. Treatment plan discussed. Patient in agreement Every effort has been made to ensure accuracy of this dictation. However, due to the limitations of electronic medical records and dictation devices, errors in charting still occur. Funds Development Director Dr. Rock Disposition Clinical Impression: Viral URI with cough Disposition: HOME SELF-CARE Condition: Good Instructions (If sedation given, give patient instructions): Upper Respiratory Infection (ED) Additional Instructions: Follow-up with your regular physician as directed. Return to the ER immediately if any symptoms worsen, new symptoms arise, or any other problems develop. Prescriptions: Benzonatate [Tessalon Perles] 200 mg PO TID PRN #30 capsule PRN Reason: Cough Is patient prescribed a controlled substance at d/c from ED?: No Referrals: Nonstaff,Physician [Primary Care Provider] - 1-2 days Time of Disposition: 19:44
== END 2022-08-27 20:00 | disposition home or self-care (01) ==
LOC: EC 16:53
DX: J06.9 Acute upper respiratory infection, unspecified (principal); E07.9 Disorder of thyroid, unspecified; F41.9 Anxiety disorder, unspecified; F12.90 Cannabis use, unspecified, uncomplicated
CPT/HCPCS: 99283

== ENCOUNTER 2023-02-08 12:45 | Emergency (ER) | payer OTHER ==
[2023-02-08 12:50] VITALS: BP 121/81; PULSE 81; RESP 16; TEMP 98.3
--- NOTE | 2023-02-08 13:56 | ED ---
General Adult HPI - General Chief complaint: Upper Respiratory Infection Stated complaint: URI, Hip & Back Pain Time Seen by Provider: 02/08/23 13:15 Source: patient, RN notes reviewed, old records reviewed Mode of arrival: ambulatory - History of Present Illness Initial comments: 38-year-old male presenting for evaluation of cough and congestion. Patient states she took an at-home Covid test which was negative. He has had mild productive cough. No dyspnea. No chest pain. No measured fever. He additionally complains of some left hip pain which is been present for the past one year and is unchanged. No injury. - Related Data Previous Rx's Medication Instructions Recorded Metoprolol Succinate (ER) [Toprol 100 mg PO DAILY #10 tab.er.24h 10/31/20 XL] methIMAzole [Tapazole] 10 mg PO DAILY #10 tab 10/31/20 Benzonatate [Tessalon Perles] 200 mg PO TID PRN #30 capsule 08/27/22 Allergies Allergy/AdvReac Type Severity Reaction Status Date / Time No Known Allergies Allergy Verified 08/27/22 18:57 Review of Systems ROS Statement: Those systems with pertinent positive or pertinent negative responses have been documented in the HPI. ROS Other: All systems not noted in ROS Statement are negative. Past Medical History Past Medical History: Thyroid Disorder History of Any Multi-Drug Resistant Organisms: None Reported Past Surgical History: No Surgical Hx Reported Past Psychological History: Anxiety Smoking Status: Light tobacco smoker Past Alcohol Use History: Occasional Past Drug Use History: Marijuana General Exam General appearance: alert, in no apparent distress Head exam: Present: atraumatic, normocephalic Eye exam: Present: normal appearance, PERRL ENT exam: Present: normal exam Neck exam: Present: normal inspection Respiratory exam: Present: normal lung sounds bilaterally. Absent: respiratory distress, wheezes Cardiovascular Exam: Present: regular rate, normal rhythm GI/Abdominal exam: Present: soft. Absent: distended, tenderness, guarding Extremities exam: Present: normal inspection, normal capillary refill. Absent: pedal edema Neurological exam: Present: alert, oriented X3, CN II-XII intact. Absent: motor sensory deficit Psychiatric exam: Present: normal affect, normal mood Skin exam: Present: warm, dry, intact Course Vital Signs 02/08/23 12:47 Temperature 98.3 F Pulse Rate 81 Respiratory 16 Rate Blood Pressure 121/81 O2 Sat by Pulse 99 Oximetry Medical Decision Making - Medical Decision Making Was pt. sent in by a medical professional or institution (AKANKSHA Tucker, [employer], urgent care, hospital, or [facility]...) When possible be specific @ -[No] Did you speak to anyone other than the patient for history (EMS, parent, family, police, friend...)? What history was obtained from this source @ -[No] Did you review nursing and triage notes (agree or disagree)? Why? @ -[I reviewed and agree with nursing and triage notes] Were old charts reviewed (outside hosp., previous admission, EMS record, old EKG, old radiological studies, urgent care reports/EKG's, [facility] records)? Report findings @ -[No old charts were reviewed] Differential Diagnosis (chest pain, altered mental status, abdominal pain women, abdominal pain men, vaginal bleeding, weakness, fever, dyspnea, syncope, headache, dizziness, GI bleed, back pain, seizure, CVA, palpatations, mental health, musculoskeletal)? @Coronavirus, influenza, viral upper respiratory infection EKG interpreted by me (3pts min.). @ -[As above] X-rays interpreted by me (1pt min.). @ -[None done] CT interpreted by me (1pt min.). @ -[None done] U/S interpreted by me (1pt. min.). @ -[None done] What testing was considered but not performed or refused? (CT, X-rays, U/S, labs)? Why? @ -[None] What meds were considered but not given or refused? Why? @ -[None] Did you discuss the management of the patient with other professionals (professionals i.e. AKANKSHA Tucker, SEAT C[employer] MAKER, lab, RT, psych nurse, social work job titles, breaker mechanic, teacher, senior escrow officer, manager of case)? Give summary @ -[No] Was smoking cessation discussed for >3mins.? @ -[No] Was critical care preformed (if so, how long)? @ -[No] Were there social determinants of health that impacted care today? How? (Homelessness, low income, unemployed, alcoholism, drug addiction, transportation, low edu. Level, literacy, decrease access to med. care, [facility]pc, rehab)? @ -[No] Was there de-escalation of care discussed even if they declined (Discuss DNR or withdrawal of care, Hospice)? DNR status @ -[No] What co-morbidities impacted this encounter? (DM, HTN, Smoking, COPD, CAD, Cancer, CVA, ARF, Chemo, Hep., AIDS, mental health diagnosis, sleep apnea, morbid obesity)? @ -[None] Was patient admitted / discharged? Hospital course, mention meds given and route, prescriptions, significant lab abnormalities, going to OR and other pertinent info. @ -38-year-old male with cough congestion, concern for coronavirus. Vital signs are negative. Patient's well-appearing with stable vitals. Likely viral upper respiratory infection. Can follow with his primary care physician. Undiagnosed new problem with uncertain prognosis? @ -[No] Drug Therapy requiring intensive monitoring for toxicity (Heparin, Nitro, Insulin, Cardizem)? @ -[No] Were any procedures done? @ -[No] Diagnosis/symptom? @ -Upper respiratory infection Acute, or Chronic, or Acute on Chronic? @ Acute - Lab Data Lab Results 02/08/23 Range/Units 13:32 Influenza Type A (PCR) Not Detected (Not Detectd) Influenza Type B (PCR) Not Detected (Not Detectd) RSV (PCR) Not Detected (Not Detectd) SARS-CoV-2 (PCR) Not Detected (Not Detectd) Disposition Clinical Impression: Upper respiratory tract infection Disposition: HOME SELF-CARE Condition: Good Instructions (If sedation given, give patient instructions): Upper Respiratory Infection (ED) Is patient prescribed a controlled substance at d/c from ED?: No Referrals: Chente Rojas MD [Primary Care Provider] - 1-2 days Time of Disposition: 14:39
== END 2023-02-08 14:50 | disposition home or self-care (01) ==
LOC: EC 12:45
DX: J06.9 Acute upper respiratory infection, unspecified (principal); F17.200 Nicotine dependence, unspecified, uncomplicated; F12.90 Cannabis use, unspecified, uncomplicated; Z86.59 Personal history of other mental and behavioral disorders; Z20.822 Contact with and (suspected) exposure to COVID-19
CPT/HCPCS: 87636; 99283